=== PATIENT | female | born 1995 | race African-American/Black ===

== ENCOUNTER 2019-04-27 12:57 | Inpatient (IN) | payer SELFPAY ==
[~2019-04-27] VITALS: Ht 167.6 cm; Wt 71.0 kg
[2019-04-27] MEDS ORDERED: SODIUM CHLORIDE 0.9% 1,000 ML IV ONE (13:27)
[2019-04-27 14:10] LABS: BASOPHILS % 0.9 % (0.0-2.0); EOSINOPHILS % 1.9 % (0.0-5.0); HEMOGLOBIN. 11.4 g/dL (12.0-16.0); LYMPHOCYTES % 28.8 % (20.0-50.0); MEAN CORPUSCULAR HEMOGLOBIN 27.2 pg (28.0-32.0); MEAN CORPUSCULAR VOLUME 81.2 fL (81.0-99.0); MEAN PLATELET VOLUME 7.9 fl (7.4-10.4); NEUTROPHILS % 59.4 % (40.0-76.0); PLATELET 242 x1000/uL (130-400); RED BLOOD CELL COUNT 4.19 mill/uL (4.2-5.4); RED CELL DISTRIBUTION WIDTH 13.6 % (11.6-14.6)
[2019-04-27 14:17] LABS: CHLORIDE 108 mEq/L (98-107)
[2019-04-27 14:18] LABS: PROTHROMBIN TIME 10.6 sec (9.6-11.0)
[2019-04-27 14:43] LABS: B-HCG QUANTITATIVE 2790 mIU/mL (<3)
[2019-04-27] MEDS ORDERED: DEXT 5%/LR + PITOCIN 20UNITS/L 1,000 ML IV ONE (15:00)
[2019-04-27] MEDS ORDERED: MISOPROSTOL 200MCG TABLET PO ONE (15:15)
[2019-04-27] MEDS ORDERED: DEXT 5%/0.45% NACL KCL 20MEQ/L 1,000 ML IV ONE (15:47)
[2019-04-27] MEDS ORDERED: PROPOFOL 200MG/20ML VIAL IV ONE (15:54)
[2019-04-27] MEDS ORDERED: FENTANYL CITRATE/PF 50MCG/ML 2ML VIAL ONE (15:54)
[2019-04-27] MEDS ORDERED: LIDOCAINE HCL/PF 1% 10 MG/ML 5ML VIAL ONE (15:55)
[2019-04-27] MEDS ORDERED: MIDAZOLAM HCL 2 MG/2 ML VIAL ONE (15:55)
[2019-04-27 16:15] VITALS: BP 102/75
[2019-04-27] MEDS ORDERED: SUCCINYLCHOLINE CHLORIDE 200MG/10ML IV ONE (16:45)
[2019-04-27] MEDS ORDERED: ONDANSETRON HCL 4MG/2ML INJ ONE (16:58)
[2019-04-27] MEDS ORDERED: DEXAMETHASONE 4MG/ML 1ML VIAL ONE (16:58)
[2019-04-27] MEDS ORDERED: KETOROLAC 30MG/ML VIAL ONE ×2 (17:03→17:04)
[2019-04-27] MEDS ORDERED: DEXT 5%/0.45% NACL KCL 20MEQ/L 1,000 ML IV SCH (17:14)
[2019-04-27] MEDS ORDERED: INFLUENZA VIRUS VACCINE(AFLURIA) 0.5ML SYR IM ONE (17:15)
[2019-04-27] MEDS ORDERED: ACETAMINOPHEN 325MG TABLET PO PRN ×2 (17:15)
[2019-04-27] MEDS ORDERED: TETANUS, DIPHTHERIA, PERTUSSIS VAC/PF 0.5ML (>7YR OLD) IM ONE (17:15)
[2019-04-27] MEDS ORDERED: KCL 20MEQ/100ML PREMIX 100 ML IV NR (17:15)
[2019-04-27] MEDS ORDERED: ONDANSETRON HCL 4MG/2ML INJ IV PRN (17:15)
[2019-04-27] MEDS: KETOROLAC 60MG/2ML VIAL IM ONE ×2 (17:38→17:41)
[2019-04-27] MEDS ORDERED: IBUP-2029 MT (19:19)
[2019-04-27] MEDS ORDERED: METH PO (19:19)
[2019-04-27] MEDS ORDERED: FERR325T6 MT (19:19)
[2019-04-28] MEDS ORDERED: KETOROLAC 60MG/2ML VIAL IM SCH (06:15)
== END 2019-04-27 20:50 | disposition home or self-care (01) | DRG 544 ==
LOC: ER 12:59 → ORIP 15:05
PROVIDERS: ADMIT Specialist; ATTEND Specialist
PROC: 10D17ZZ Extraction of Products of Conception, Retained, Via Natural or Artificial Opening (ICD-10-PCS; principal; 2019-04-27)
DX: O03.4 Incomplete spontaneous abortion without complication (principal); O26.891 Other specified pregnancy related conditions, first trimester; E16.2 Hypoglycemia, unspecified; Z87.891 Personal history of nicotine dependence
CPT/HCPCS: 36415; 76801; 80053; 84702; 85025; 86850; 86900; 88305; 99285; J0330; J1100; J1885; J2250; J2405; J2590; J2704; J3010; J3480; J3490; J7030

== ENCOUNTER 2019-04-28 11:15 | Emergency (ER) | payer SELFPAY ==
[~2019-04-28] VITALS: Ht 167.6 cm; Wt 77.0 kg
[~2019-04-28 11:15] MED LIST: FERR325T6 MT; IBUP-2029 MT; METH PO
[2019-04-28 11:27] VITALS: BP 144/82
== END 2019-04-28 12:45 | disposition home or self-care (01) ==
LOC: ER 11:15
DX: Z59.7 Insufficient social insurance and welfare support (principal); R03.0 Elevated blood-pressure reading, without diagnosis of hypertension
CPT/HCPCS: 99281